=== PATIENT | female | born 1995 | race Caucasian/White ===

== ENCOUNTER 2023-10-21 08:30 | Inpatient (IN) | payer OTHER ==
[2023-10-21] MEDS: LACTATED RINGERS SOLUTION 1,000 ML IV ONE ×2 (09:20→11:00)
[2023-10-21 09:29] LABS: BASO % 0.3 % (0-2.0); EOS % 0.4 % (0-4.5); HEMATOCRIT 34.7 % (32.4-45.2); HEMOGLOBIN 11.9 GM/dL (10.7-15.3); LYMPH % 17.1 % (8-40); MCH 29.8 pg (25.7-33.7); MCHC 34.2 g/dl (32.0-36.0); MEAN PLT VOLUME 9.9 fl (7.5-11.1); MONO % 4.9 % (3.8-10.2); NEUT % 77.3 % (42.8-82.8); PLATELET COUNT 190 10^3/uL (134-434); RBC 3.99 M/mm3 (3.60-5.2); RDW 13.7 % (11.6-15.6); WHITE BLOOD COUNT 11.7 K/mm3 (4.0-10.0)
[2023-10-21 09:43] LABS: POTASSIUM 4.1 mmol/L (3.5-5.1)
[2023-10-21 09:44] LABS: CALCIUM 8.5 mg/dL (8.5-10.1)
[2023-10-21 09:46] LABS: ALBUMIN 2.8 g/dl (3.4-5.0); BLOOD UREA NITROGEN 10.9 mg/dL (7-18)
[2023-10-21 09:49] LABS: CREATININE 0.7 mg/dL (0.55-1.3)
[2023-10-21 09:50] LABS: BILIRUBIN,TOTAL 0.3 mg/dL (0.2-1); TOT PROT 6.4 g/dl (6.4-8.2)
[2023-10-21 10:36] LABS: HIV INTERPRETATION NEGATIVE (NEGATIVE)
[2023-10-21] MEDS ORDERED: LACTATED RINGERS SOLUTION 1,000 ML IV ONE (11:00)
[2023-10-21 11:25] VITALS: BMI 27.3
[2023-10-21] MEDS ORDERED: FENTANYL/BUPIVACAINE/NS/PF - PCEA - 50 ML DISP.SYRIN EP ONE ×2 (11:34→16:46)
[2023-10-21] MEDS ORDERED: BUPIVACAINE HCL/PF 0.25% (2.5MG/ML) 10 ML VIAL ONE (11:45)
[2023-10-21 11:53] LABS: INR 0.93 (0.83-1.09); PROTHROMBIN TIME (PATIENT) 10.5 SEC (9.7-13.0)
[2023-10-21 11:56] LABS: ACTIVATED PTT 24.8 SECONDS (25.2-36.5)
[2023-10-21] MEDS: FENTANYL/BUPIVACAINE/NS/PF - PCEA - 50 ML DISP.SYRIN EP SCH (12:00)
[2023-10-21] MEDS ORDERED: NALOXONE HCL 0.4 MG/ML VIAL IVPUSH PRN (12:08)
[2023-10-21] MEDS ORDERED: OXYTOCIN 30 UNITS in 0.9% NS 30 UNIT/500 ML INFUS.BAG IVPB ONE (16:46)
[2023-10-21] MEDS: OXYTOCIN 30 UNITS in 0.9% NS 30 UNIT/500 ML INFUS.BAG IVPB SCH (16:55)
[2023-10-21] MEDS ORDERED: OXYTOCIN 20 UNITS in 0.9% NS 20 UNIT/1,000 ML INFUS.BAG IV ONE (19:26)
[2023-10-21] MEDS ORDERED: LIDOCAINE HCL 1% PRESERVATIVE FREE - 30ML VIAL ONE (19:48)
[2023-10-21] MEDS: ELECTROLYTE-148 SOLN 1,000 ML IV SCH (21:05)
[2023-10-21] MEDS: OXYTOCIN 20 UNITS in 0.9% NS 20 UNIT/1,000 ML INFUS.BAG IV SCH (22:08)
[2023-10-21] MEDS ORDERED: METHYLERGONOVINE MALEATE 0.2 MG/1 ML AMP IM PRN (22:24)
[2023-10-21] MEDS ORDERED: ACETAMINOPHEN 325 MG TABLET (FP) PO PRN (22:24)
[2023-10-21] MEDS ORDERED: BENZOCAINE 28 GM HEMORRHOIDAL OINTMENT TP PRN (22:24)
[2023-10-21] MEDS ORDERED: WITCH HAZEL 50% (TUCKS) 40 PAD/JAR PAD TP PRN (22:24)
[2023-10-21] MEDS ORDERED: BISACODYL 10 MG SUPP.RECT RC PRN (22:24)
[2023-10-21] MEDS ORDERED: oxyCODONE HCL 5 MG TABLET PO PRN (22:24)
[2023-10-22] MEDS: IBUPROFEN 600 MG TABLET (FP) PO PRN (03:10)
[2023-10-22 06:20] LABS: BASO % 0.1 % (0-2.0); EOS % 0.1 % (0-4.5); HEMOGLOBIN 10.1 GM/dL (10.7-15.3); LYMPH % 10.1 % (8-40); MCH 29.6 pg (25.7-33.7); MCHC 33.6 g/dl (32.0-36.0); MEAN CELL VOLUME 88.1 fl (80-96); MEAN PLT VOLUME 9.7 fl (7.5-11.1); MONO % 5.5 % (3.8-10.2); NEUT % 84.2 % (42.8-82.8); PLATELET COUNT 150 10^3/uL (134-434); RBC 3.41 M/mm3 (3.60-5.2); RDW 13.4 % (11.6-15.6); WHITE BLOOD COUNT 18.4 K/mm3 (4.0-10.0)
[2023-10-22] MEDS: FERROUS SO4 325 MG TABLET (FP) PO SCH (09:08)
[2023-10-22] MEDS: PRENATAL VITAMINS W/ FOLIC ACID TABLET (FP) PO SCH (09:08)
[2023-10-22] MEDS: BENZOCAINE 20% 57 GM BOTTLE TP PRN (09:08)
[2023-10-22 10:33] VITALS: RESP 18
[2023-10-22] MEDS ORDERED: SENNOSIDES/DOCUSATE COMBO (SENNA PLUS) TABLET (UD) PO PRN (22:00)
[2023-10-23 10:33] VITALS: BP 103/60; PULSE 72; TEMP 97
== END 2023-10-23 13:23 | disposition home or self-care (01) | DRG 560 ==
LOC: JDEL 08:30 → JLDR 10:10 → J3W 10-22 01:25
PROVIDERS: ADMIT Obstetrics & Gynecology; ATTEND Obstetrics & Gynecology
PROC: 10E0XZZ Delivery of Products of Conception, External Approach (ICD-10-PCS; principal; 2023-10-21)
PROC: 0HQ9XZZ Repair Perineum Skin, External Approach (ICD-10-PCS; 2023-10-21)
DX: O70.0 First degree perineal laceration during delivery (principal); Z3A.39 39 weeks gestation of pregnancy; Z37.0 Single live birth
CPT/HCPCS: 36415; 59025; 80053; 85025; 85610; 85730; 86780; 86803; 86850; 86900; 86901; 87389